=== PATIENT | male | born 1995 ===

== ENCOUNTER 2017-09-22 12:54 | Emergency (ER) | payer OTHER ==
[2017-09-22 13:03] VITALS: BP 119/72; PULSE 90; RESP 16; TEMP 97.6; O2SAT 98
--- NOTE | 2017-09-22 13:13 | C.PDOC ---
History Of Present Illness 21 year old male presents to the ED for removal of ear wax from his bilateral ears. Patient was seen by his PMD after feeling clogged sensation in his ears and told that he has ear wax in his bilateral ears. Patient cannot afford to see a doctor for wax removal and presents to the ED for further evaluation. He denies fever, chills, or ear pain. Time Seen by Provider: 09/22/17 13:06 Chief Complaint (Nursing): ENT Problem History Per: Patient History/Exam Limitations: None Onset/Duration Of Symptoms: Days Current Symptoms Are (Timing): Still Present Quality (Ear): denies: Pain W/Touch Past Medical History Reviewed: Historical Data, Nursing Documentation, Vital Signs Vital Signs: Last Vital Signs Temp 97.6 F 09/22/17 12:59 Pulse 90 09/22/17 12:59 Resp 16 09/22/17 12:59 BP 119/72 09/22/17 12:59 Pulse Ox 98 09/22/17 16:42 - Medical History PMH: No Chronic Diseases Surgical History: No Surg Hx Family History: States: Unknown Family Hx - Social History Hx Alcohol Use: No Hx Substance Use: No - Immunization History Hx Tetanus Toxoid Vaccination: Yes Hx Influenza Vaccination: No Hx Pneumococcal Vaccination: No Review Of Systems Constitutional: Negative for: Fever, Chills ENT: Positive for: Other (cerumen in bilateral ears ). Negative for: Ear Pain Physical Exam - Physical Exam Appears: Non-toxic, No Acute Distress Skin: Normal Color, Warm, Dry Head: Atraumatic, Normacephalic Eye(s): bilateral: Normal Inspection Ear(s): Bilateral: TM Obscured By Wax (dark and hard cerumen visualized ) Oral Mucosa: Moist Extremity: Normal ROM Neurological/Psych: Oriented x3, Normal Speech, Normal Cognition ED Course And Treatment O2 Sat by Pulse Oximetry: 98 (on RA) Pulse Ox Interpretation: Normal Progress Note: Patient is resting comfortably, showing no signs of distress and is stable for discharge. Patient is advised to apply Debrox ear drops to both of his ears for three days and then return to the ED for cerumen removal. Disposition - Disposition Referrals: Frankie Patton MD [Staff Provider] - Disposition: HOME/ ROUTINE Disposition Time: 13:09 Condition: STABLE Additional Instructions: Follow up with PMD / ENT within 1-2 days. Return to ED if feel worse. Prescriptions: Carbamide Peroxide [Debrox Ear Drops] 4 drop AU TID #1 bottle Instructions: Ear Wax Impaction (DC) Forms: [employer] (Amharic) Print Language: CITIZEN OF [place] - Clinical Impression Clinical Impression: Impacted cerumen of both ears - PA / CONTRACT OFFICER / Resident Statement MD/DO has reviewed & agrees with the documentation as recorded. - Scribe Statement The provider has reviewed the documentation as recorded by the Scribe (Clare Tena) All medical record entries made by the Scribe were at my direction and personally dictated by me. I have reviewed the chart and agree that the record accurately reflects my personal performance of the history, physical exam, medical decision making, and the department course for this patient. I have also personally directed, reviewed, and agree with the discharge instructions and disposition.
== END 2017-09-22 13:22 | disposition home or self-care (01) ==
LOC: C.ER 12:54
DX: H61.23 Impacted cerumen, bilateral (principal)